=== PATIENT | female | born 1970 | race African-American/Black ===

== ENCOUNTER 2017-01-02 21:00 | Inpatient (IN) | payer BC ==
[~2017-01-02] VITALS: Ht 154.9 cm; Wt 52.3 kg
--- NOTE | ~2017-01-02 | EKG ---
[address] [address] ELECTROCARDIOGRAM REPORT Name: KESHAWN,ASHLEY E Room #: 207-P ADM IN M.R.#: [id number] Admission: 01/03/17 Attend Phys: Fransico Hinkle MD Discharge: Date of : 72 Report #: [id number] THIS REPORT FOR: //name// [facility] ED Test Date: 2017-01-02 Test Time: 22:09:03 Pat Name: ASHLEY LIAO Department: Room: [facility] Gender: F Business Intelligence Consultant: GRACIE : 1970 Requested By: Timmy See Order Number: [id number] MD: Dillan Stacy Measurements Intervals [place] Rate: 82 P: 74 IA: 143 QRS: 31 QRSD: 90 T: 64 QT: 352 QTc: 411 Interpretive Statements Sinus rhythm Compared to ECG 01/07/2003 18:22:06 No significant changes Electronically Signed On 01-04-2017 16:03:18 CDT by Dillan Stacy [email or web address] <ELECTRONICALLY SIGNED> By: Dillan Stacy MD 01/04/17 1603 08 08 Dillan Stacy MD /DEN
[~2017-01-02 21:00] MED LIST: AMPICILLIN SOD500 MG PO; FLAGYL500 MG PO; HYDROCODONE-AP1 EAC6 PO; IRON325 PO; LIALDA1.2 GM PO; POTASSIUM20 PO; PREDNISONE 10 M10 MG PO; PREDNISONE 20 M20 MG PO; PREDNISONE 5 MG5 M1 PO; PROBIOTIC1 EAC1 PO; PROTONIX40 M1 PO; UNICOMPLEX M TA1 TA1 PO; VITAMIN D1000 UNI1 PO; ZYRTEC10 MG PO
[2017-01-02 21:12] VITALS: BP 115/72
[2017-01-02 23:05] LABS: URINE BILIRUBIN NEGATIVE (Negative); URINE BLOOD NEGATIVE (Negative); URINE COLOR YELLOW; URINE GLUCOSE-RANDOM* NEGATIVE (Negative); URINE KETONES NEGATIVE (Negative); URINE LEUKOCYTES-REFLEX NEGATIVE (Negative); URINE PROTEIN (DIPSTICK) NEGATIVE (Negative); URINE SPECIFIC GRAVITY 1.015 (1.003-1.035); URINE UROBILINOGEN 0.2 E.U./dl (0.2-1.0)
[2017-01-02 23:40] LABS: MCH 18.5 pg (26.0-34.0)
[2017-01-02 23:41] LABS: MCHC 28.4 g/dL (28.0-37.0); MCV 65.1 fL (80.0-100.0); PLATELET COUNT 405 thou/uL (150-400); RDW 18.5 % (10.5-14.5); WBC 6.5 thou/uL (4.0-11.0)
[2017-01-02 23:44] LABS: MANUAL DIFF YES
[2017-01-02 23:45] LABS: HEMATOCRIT 18.9 % (37.0-47.0); HEMOGLOBIN 5.4 gm/dL (12.0-15.0)
[2017-01-02 23:46] LABS: ANION GAP 7 mmol/L (7-16); BUN 5 mg/dL (7-18); CALCIUM 8.3 mg/dL (8.5-10.1); CHLORIDE 104 mmol/L (98-107); CO2 25 mmol/L (21-32); CREATININE 0.6 mg/dL (0.6-1.0); GLUCOSE 84 mg/dL (74-106); SODIUM 136 mmol/L (136-145)
[2017-01-02 23:54] LABS: ALBUMIN 2.4 g/dL (3.4-5.0); ALKALINE PHOSPHATASE 110 U/L (46-116); DIRECT BILIRUBIN < 0.1 mg/dL (<0.1-0.3); SGOT 18 U/L (15-37); SGPT 14 U/L (30-65); TOTAL BILIRUBIN 0.2 mg/dL (<0.1-1.0); TOTAL PROTEIN 6.1 g/dL (6.4-8.2); TROPONIN-I < 0.04 ng/mL (<0.04-0.07)
[2017-01-03] VITALS (9 sets, daily range): BP systolic 93–130; BP diastolic 45–73
[2017-01-03 00:04] LABS: APTT 26.8 Seconds (24.5-32.8); INR 1.1; PROTIME 11.2 Seconds (9.3-11.4)
[2017-01-03 00:34] LABS: ABSOLUTE NEUTROPHILS 4.7 thou/uL (1.4-8.2); HYPOCHROMASIA 3+; TOTAL CELL COUNT 100
[2017-01-03 00:35] LABS: ANISOCYTOSIS 3+; OVALOCYTES 1+; POIKILOCYTOSIS 1+; POLYCHROMASIA OCCASIONAL; TARGET CELLS OCCASIONAL
[2017-01-03 00:36] LABS: LARGE PLATELETS RARE; MICROCYTES 2+
[2017-01-03 11:46] LABS: HEMATOCRIT 34.3 % (37.0-47.0); MCH 23.4 pg (26.0-34.0); RBC 4.69 mil/uL (4.20-5.00); RDW 24.4 % (10.5-14.5); WBC 7.2 thou/uL (4.0-11.0)
[2017-01-03 11:48] LABS: MCV 73.1 fL (80.0-100.0)
[2017-01-03 12:03] LABS: ALBUMIN 2.3 g/dL (3.4-5.0); CALCIUM 8.2 mg/dL (8.5-10.1); CREATININE 0.4 mg/dL (0.6-1.0); POTASSIUM 4.2 mmol/L (3.5-5.1); TOTAL BILIRUBIN 0.4 mg/dL (<0.1-1.0); TOTAL PROTEIN 5.7 g/dL (6.4-8.2)
[2017-01-04 04:30] VITALS: BP 106/57
[2017-01-04 06:15] LABS: HEMATOCRIT 34.4 % (37.0-47.0); HEMOGLOBIN 10.9 gm/dL (12.0-15.0); MCHC 31.6 g/dL (28.0-37.0); MCV 72.7 fL (80.0-100.0); RBC 4.73 mil/uL (4.20-5.00); RDW 24.2 % (10.5-14.5); WBC 9.5 thou/uL (4.0-11.0)
[2017-01-04 06:26] LABS: ANION GAP 6 mmol/L (7-16); BUN < 1 mg/dL (7-18); CALCIUM 8.3 mg/dL (8.5-10.1); CHLORIDE 109 mmol/L (98-107); CO2 26 mmol/L (21-32); CREATININE 0.4 mg/dL (0.6-1.0); GLUCOSE 117 mg/dL (74-106); POTASSIUM 3.8 mmol/L (3.5-5.1); SODIUM 141 mmol/L (136-145)
[2017-01-04 07:35] VITALS: BP 97/50
[2017-01-04 11:55] VITALS: BP 98/62
[2017-01-04 16:30] VITALS: BP 96/56
[2017-01-04 19:46] VITALS: BP 118/71
[2017-01-05 03:58] VITALS: BP 114/72
[2017-01-05 08:10] VITALS: BP 107/61
[2017-01-05] MEDS ORDERED: PREDNISONE 20 M20 M1 PO (09:16)
[2017-01-05 09:29] LABS: HEMATOCRIT 35.6 % (37.0-47.0); HEMOGLOBIN 11.3 gm/dL (12.0-15.0); MCH 23.2 pg (26.0-34.0); MCHC 31.8 g/dL (28.0-37.0); MCV 72.9 fL (80.0-100.0); RBC 4.89 mil/uL (4.20-5.00); RDW 25.3 % (10.5-14.5); WBC 6.9 thou/uL (4.0-11.0)
[2017-01-05 09:40] LABS: CALCIUM 8.5 mg/dL (8.5-10.1); CREATININE 0.5 mg/dL (0.6-1.0); POTASSIUM 3.1 mmol/L (3.5-5.1)
[2017-01-05 11:03] VITALS: BP 107/61
== END 2017-01-05 12:43 | disposition home or self-care (01) | DRG 378 ==
LOC: ER 21:00 → EROBS 01-03 00:20 → 2N 01-03 00:20
PROVIDERS: Emergency Medicine; Family Medicine; Nurse Practitioner Family
PROC: 30233N1 Transfusion of Nonautologous Red Blood Cells into Peripheral Vein, Percutaneous Approach (ICD-10-PCS; principal; 2017-01-03)
DX: K92.2 Gastrointestinal hemorrhage, unspecified (principal); K51.911 Ulcerative colitis, unspecified with rectal bleeding; D50.0 Iron deficiency anemia secondary to blood loss (chronic); Z79.899 Other long term (current) drug therapy; Z87.440 Personal history of urinary (tract) infections; Z91.018 Allergy to other foods; Z87.891 Personal history of nicotine dependence
CPT/HCPCS: 10081